=== PATIENT | male | born 1960 | race Caucasian/White ===

== ENCOUNTER 2020-08-15 01:01 | Observation (INO) | payer OTHER ==
[~2020-08-15] VITALS: Ht 188 cm; Wt 102.1 kg
--- NOTE | 2020-08-15 01:07 | Emergency Department Note ---
History of Present Illnes History of Present Illness History of Present Illness This is a 60 year old male woke up one hour prior to arrival with dyspnea and nausea. Recent prostatectomy in March 2020 secondary to CA . 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 Any updates have been documented here. Past Medical History Recent Fever: No Clinical Suspicion of Infectio: No New/Unexplained Change in Ment: No Past Medical History: None Other Surgery: prostatectomy Social History Smoking Cessation: Never Smoker Alcohol Use: None Any Illegal Drug Use: No Review of Systems Review of Systems Constitutional: Reports weakness EENTM: Reports no symptoms Cardiovascular: Reports no symptoms Respiratory: Reports dyspnea Gastrointestinal: Reports no symptoms Genitourinary: Reports no symptoms Musculoskeletal: Reports no symptoms Integumentary: Reports no symptoms Neurological: Reports no symptoms Psychological: Reports no symptoms Endocrine: Reports no symptoms Hematological/Lymphatic: Reports no symptoms Physical Exam Related Data Allergies: Coded Allergies: No Known Allergies (Unverified , 08/15/20) Triage Vital Signs Vital Signs Date Time Temp Pulse Resp B/P (MAP) Pulse Ox O2 Delivery O2 Flow Rate FiO2 08/15/20 01:25 98.7 59 23 164/101 100 Room Air Vital signs reviewed: Yes Physical Exam CONSTITUTIONAL Constitutional: Present well-developed, Present obese HENT HENT: Present normocephalic, Present atraumatic, Present oropharynx clear/moist, Present nose normal HENT L/R: Present left ext ear normal, Present right ext ear normal EYES Eyes: Reports PERRL, Reports conjunctivae normal NECK Neck: Present ROM normal PULMONARY Pulmonary: Present effort normal, Present breath sounds normal CARDIOVASCULAR Cardiovascular: Present bradycardia GASTROINTESTINAL Abdominal: Present soft, Present nontender, Present bowel sounds normal GENITOURINARY Genitourinary: Present exam deferred SKIN Skin: Present warm, Present dry MUSCULOSKELETAL Musculoskeletal: Present ROM normal NEUROLOGICAL Neurological: Present alert, Present oriented x 3, Present no gross motor or se nsory deficits PSYCHOLOGICAL Psychological: Present mood/affect normal, Present judgement normal Results Laboratory Lab results reviewed: Yes Laboratory comments Laboratory Tests Test 08/15/20 02:51 08/15/20 01:30 08/15/20 01:05 Urine Opiates Screen Negative (NEGATIVE) Urine Methadone Screen Negative (NEGATIVE) Urine Barbiturates Screen Negative (NEGATIVE) Urine Phencyclidine Screen Negative (NEGATIVE) Urine Amphetamines Screen Negative (NEGATIVE) Urine Methamphetamines Screen Negative (NEGATIVE) Urine Benzodiazepines Screen Negative (NEGATIVE) Urine Cocaine Screen Negative (NEGATIVE) Urine Cannabinoids Screen Negative (NEGATIVE) Coronavirus (PCR) Not detected (NOTDETECTED) White Blood Count 10.92 x10e3/uL (4.8-10.8) Red Blood Count 5.52 x10e6/uL (4.3-5.7) Hemoglobin 15.9 g/dL (14.0-18.0) Hematocrit 48.0 % (38.2-49.6) Mean Corpuscular Volume 87.0 fL (81-99) Mean Corpuscular Hemoglobin 28.8 pg (28-32) Mean Corpuscular Hemoglobin Concent 33.1 g/dL (31-35) Red Cell Distribution Width 13.3 % (11.7-14.4) Platelet Count 245 x10e3/uL (140-360) Neutrophils (%) (Auto) 56.5 % (38.7-80.0) Lymphocytes (%) (Auto) 36.2 % (18.0-39.1) Monocytes (%) (Auto) 4.2 % (4.4-11.3) Eosinophils (%) (Auto) 2.0 % (0.0-6.0) Basophils (%) (Auto) 0.3 % (0.0-1.0) Neutrophils # (Auto) 6.2 (2.1-6.9) Lymphocytes # (Auto) 4.0 (1.0-3.2) Monocytes # (Auto) 0.5 (0.2-0.8) Eosinophils # (Auto) 0.2 (0.0-0.4) Basophils # (Auto) 0.0 (0.0-0.1) Absolute Immature Granulocyte (auto 0.09 x10e3/uL (0-0.1) Sodium Level 146 mmol/L (136-145) Potassium Level 4.0 mmol/L (3.5-5.1) Chloride Level 106 mmol/L (98-107) Carbon Dioxide Level 25 mmol/L (22-29) Anion Gap 19.0 mmol/L (8-16) Blood Urea Nitrogen 18 mg/dL (7-26) Creatinine 1.43 mg/dL (0.72-1.25) Estimat Glomerular Filtration Rate 50 ML/MIN (60-) BUN/Creatinine Ratio 13 (6-25) Glucose Level 126 mg/dL (74-118) Calcium Level 10.0 mg/dL (8.4-10.2) Total Bilirubin 1.0 mg/dL (0.2-1.2) Aspartate Amino Transf (AST/SGOT) 19 IU/L (5-34) Alanine Aminotransferase (ALT/SGPT) 30 IU/L (0-55) Alkaline Phosphatase 89 IU/L (40-150) Creatine Kinase 86 IU/L (30-200) Creatine Kinase MB 3.40 ng/mL (0-5.0) Troponin I 0.008 ng/mL (0-0.300) B-Type Natriuretic Peptide 43.4 pg/mL (0-100) Total Protein 6.6 g/dL (6.5-8.1) Albumin 4.6 g/dL (3.5-5.0) Globulin 2.0 g/dL (2.3-3.5) Albumin/Globulin Ratio 2.3 (0.8-2.0) Imaging Imaging results reviewed: Yes Impressions [place] [address] Patient Name: BRYANT UREÑA MR #: [id number] : 1960 Age/Sex: 60/M Req #: [id number] Adm Physician: Ordered by: JONAH CRANDALL DO Report #: [id number] Location: ER Room/Bed: Procedure: [id number] CT/CT CHEST W Exam Date: 08/15/20 Exam Time: 199 REPORT STATUS: Signed EXAM: CT Chest WITH contrast (PE Protocol) INDICATION: ^PE PROTOCOL ^[id number] ^0 ^Y COMPARISON: None TECHNIQUE: Chest was scanned utilizing a multidetector helical scanner from the lung apex through the level of the diaphragm after administration of IV contrast. Thin section reconstructions were obtained with special concentration on the pulmonary arteries. Coronal and sagittal reformations were obtained. Dose modulation, iterative reconstruction, and/or weight based adjustment of the mA/kV was utilized to reduce the radiation dose to as low as reasonably achievable. Pulmonary embolism protocol was performed. IV CONTRAST: 100 mL of Omnipaque 370 COMPLICATIONS: None RADIATION DOSE: Total DLP: 695.81 mGy*cm Estimated effective dose: (DLP x 0.014 x size factor) mSv CTDIvol has been reviewed. It is below the limits set by the Radiation Protocol Committee (RPC). FINDINGS: LINES/ TUBES: None. LUNGS AND AIRWAYS: No filling defect is identified within the pulmonary arteries to the segmental level. The lungs are unremarkable. Airways are normal. PLEURA: The pleural spaces are clear. HEART AND MEDIASTINUM: The thyroid gland is normal. No mediastinal, hilar or axillary lymphadenopathy. The heart is normal in size.. There is no pericardial effusion. . Main pulmonary artery measures 3.3 cm, suggestive of pulmonary hypertension. UPPER ABDOMEN: 1.7 cm right hepatic lobe hypodensity cannot be fully characterized, but is probably a cyst. BONES: Left T4 transverse process sclerotic focus, likely a bone island. SOFT TISSUES: Right posterolateral shoulder subcutaneous lipoma. IMPRESSION: No pulmonary emboli. Signed by: Dr. Fito López MD on 08/15/2020 2:40 AM Dictated By: FITO LÓPEZ MD 9 Transcribed By: TERI on 08/15/20239 COPY TO: JONAH CRANDALL DO~ Procedures 12 Lead ECG Interpretation ECG Interpretation #1: ECG: ECG 1 Factory Expert: Interpreted by ED physician Date: Aug 15, 2020 Time: 01:13 Prior ECG tracings: reviewed Rhythm: sinus rhythm Rate: normal BPM: 69 QRS axis: normal ST segments normal: Yes T waves normal: No T waves flattening: all, V2 Other findings: LVH Q waves: aVR Clinical Impression: non-specific ECG ECG Interpretation #2: ECG: ECG 2 Factory Expert: Interpreted by ED physician Date: Aug 15, 2020 Time: 04:50 Prior ECG tracings: reviewed Rhythm: sinus rhythm Rate: bradycardia BPM: 55 QRS axis: normal ST segments normal: Yes T waves normal: No T waves flattening: I, II, III, V1-V6 Clinical Impression: non-specific ECG Clinical Decision Tools HEART Score Date Taken: Aug 15, 2020 Time taken: 03:00 List risk factors obesity ,HTN HEART Score: HEART Score Response (Comments) Value History Moderately suspicious 1 EKG Normal 0 Age 45 - 65 1 Risk factors 1 or 2 risk factors 1 Troponin < or = to normal limit Total 3 Assessment & Plan Medical Decision Making MDM 60 yom with dyspnea /. Cardiac enzymes, EKG, and CXR/CT scan of chest wall ordered to evaluate for ACS, PNA, PTX, CHF, PE and aortic pathology Assessment & Plan Final Impression: (1) Angina at rest Depart Disposition: ADMITTED JONAH CRANDALL DO Aug 15, 2020 01:07
[2020-08-15] MEDS ORDERED: SODIUM CHLORIDE 0.9% 1000ML 1,000 ML IV SCH ×2 (01:15→03:30)
[2020-08-15] MEDS ORDERED: LORAZEPAM INJ 2 MG/ML VIAL IV ONE (01:15)
[2020-08-15] MEDS ORDERED: ASPIRIN 81 MG CHEW TAB PO ONE ×2 (01:15→05:30)
[2020-08-15 01:16] LABS: BASOPHILS % 0.3 % (0.0-1.0); EOSINOPHILS # (AUTO) 0.2 (0.0-0.4); HEMOGLOBIN 15.9 g/dL (14.0-18.0); LYMPHOCYTES % 36.2 % (18.0-39.1); MEAN CORPUSCULAR HEMOGLOBIN 28.8 pg (28-32); MEAN CORPUSCULAR HGB CONC 33.1 g/dL (31-35); MONOCYTES # (AUTO) 0.5 (0.2-0.8); MONOCYTES % 4.2 % (4.4-11.3); NEUTROPHILS # (AUTO) 6.2 (2.1-6.9); NEUTROPHILS % 56.5 % (38.7-80.0); PLATELET COUNT 245 x10e3/uL (140-360); RED BLOOD COUNT 5.52 x10e6/uL (4.3-5.7); RED CELL DISTRIBUTION WIDTH 13.3 % (11.7-14.4)
[2020-08-15] MEDS ORDERED: SODIUM CHLORIDE 0.9% 1000ML 1,000 ML ONE (01:25)
[2020-08-15] MEDS ORDERED: LORAZEPAM INJ 2 MG/ML VIAL ONE (01:25)
[2020-08-15 01:34] LABS: ALBUMIN 4.6 g/dL (3.5-5.0); ALBUMIN/GLOBULIN RATIO 2.3 (0.8-2.0); CREATININE, SERUM 1.43 mg/dL (0.72-1.25)
--- NOTE | 2020-08-15 01:40 | NUR ---
patient reorientated to try to stay still when bp machine going, patient unable to sit still, dr myrick notified
[2020-08-15 01:41] LABS: CREATINE KINASE MB 3.4 ng/mL (0-5.0)
[2020-08-15] MEDS ORDERED: SODIUM CHLORIDE 0.9% 1000ML 1,000 ML IV ONE (01:45)
--- NOTE | 2020-08-15 02:21 | NUR ---
patient verbalizes feeling better, yo leg shaking has stopped
--- NOTE | 2020-08-15 02:31 | Diagnostic Imaging Report ---
EXAMINATION: CHEST SINGLE (PORTABLE) INDICATION: ^ERMD ORDER ^[id number] ^0140 ^Y COMPARISON: None FINDINGS: AP view TUBES and LINES: None. LUNGS: Lungs are well inflated. There is no evidence of pneumonia or pulmonary edema. Mild central vascular congestion. PLEURA: No pleural effusion or pneumothorax. HEART AND MEDIASTINUM: The cardiomediastinal silhouette is mildly enlarged. BONES AND SOFT TISSUES: No acute osseous lesion. Cervical fusion hardware is visualized. Soft tissues are unremarkable. UPPER ABDOMEN: No free air under the diaphragm. IMPRESSION: Mildly enlarged cardiomediastinal silhouette and central vascular congestion. No definite focal consolidations. Signed by: Dr. Fito López MD on 08/15/2020 2:28 AM
[2020-08-15] MEDS ORDERED: FAMOTIDINE 20 MG/2 ML VIAL IV STA (02:36)
--- NOTE | 2020-08-15 02:36 | Diagnostic Imaging Report ---
History:Dizziness, fall Comparison studies: None Technique: Axial images were obtained from the skull base to the vertex. Coronal and sagittal images reconstructed from the axial data. Dose modulation, iterative reconstruction, and/or weight based adjustment of the mA/kV was utilized to reduce the radiation dose to as low as reasonably achievable. Intravenous contrast: None Findings: Scalp/skull: No abnormalities. Extra-axial spaces: No masses. No fluid collections. Brain sulci: Mildly prominent. Ventricles: Mild compensatory dilatation. No hydrocephalus. Parenchyma: No abnormal densities No masses, hemorrhage, acute or chronic cortical vascular insults. Sellar/suprasellar region: No abnormalities. Craniocervical junction: Patent foramen magnum. No Chiari one malformation. 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 Signed by: Dr. Domingo Truong M.D. on 08/15/2020 2:33 AM
--- NOTE | 2020-08-15 02:43 | Diagnostic Imaging Report ---
EXAM: CT Chest WITH contrast (PE Protocol) INDICATION: ^PE PROTOCOL ^[id number] ^0200 ^Y COMPARISON: None TECHNIQUE: Chest was scanned utilizing a multidetector helical scanner from the lung apex through the level of the diaphragm after administration of IV contrast. Thin section reconstructions were obtained with special concentration on the pulmonary arteries. Coronal and sagittal reformations were obtained. Dose modulation, iterative reconstruction, and/or weight based adjustment of the mA/kV was utilized to reduce the radiation dose to as low as reasonably achievable. Pulmonary embolism protocol was performed. IV CONTRAST: 100 mL of Omnipaque 370 COMPLICATIONS: None RADIATION DOSE: Total DLP: 695.81 mGy*cm Estimated effective dose: (DLP x 0.014 x size factor) mSv CTDIvol has been reviewed. It is below the limits set by the Radiation Protocol Committee (RPC). FINDINGS: LINES/ TUBES: None. LUNGS AND AIRWAYS: No filling defect is identified within the pulmonary arteries to the segmental level. The lungs are unremarkable. Airways are normal. PLEURA: The pleural spaces are clear. HEART AND MEDIASTINUM: The thyroid gland is normal. No mediastinal, hilar or axillary lymphadenopathy. The heart is normal in size.. There is no pericardial effusion. . Main pulmonary artery measures 3.3 cm, suggestive of pulmonary hypertension. UPPER ABDOMEN: 1.7 cm right hepatic lobe hypodensity cannot be fully characterized, but is probably a cyst. BONES: Left T4 transverse process sclerotic focus, likely a bone island. SOFT TISSUES: Right posterolateral shoulder subcutaneous lipoma. IMPRESSION: No pulmonary emboli. Signed by: Dr. Fito López MD on 08/15/2020 2:40 AM
[2020-08-15 03:00] LABS: AMPHETAMINES SCREEN,URINE NEGATIVE (NEGATIVE); BENZODIAZEPINES SCREEN,URINE NEGATIVE (NEGATIVE); PHENCYCLIDINE SCREEN,URINE NEGATIVE (NEGATIVE)
[2020-08-15 05:07] LABS: CREATINE KINASE MB 3.4 ng/mL (0-5.0)
[2020-08-15] MEDS ORDERED: ONDANSETRON HCL INJ 2MG/ML 2ML 2 MG/ML VIAL IV PRN (05:30)
[2020-08-15] MEDS ORDERED: MORPHINE SULFATE INJ 4 MG/ML INJ 1ML IV PRN (05:30)
--- NOTE | 2020-08-15 06:47 | NUR ---
walking rounds with jaycee jarvis
[2020-08-15] MEDS ORDERED: SODIUM CHLORIDE 0.9% 50ML 50 ML ONE (07:06)
[2020-08-15] MEDS ORDERED: IOPAMIDOL 370 MG/ML 200 ML INFUS..BTL INJ ONE (07:06)
--- NOTE | 2020-08-15 12:49 | History and Physical ---
CHIEF COMPLAINT: Atypical chest pain, epigastric after eating papaya. HISTORY OF PRESENT ILLNESS: The patient is a 60-year-old male with no cardiac history. The patient has chronic bradycardia. He is from [place], traveled here. Apparently, he felt some chest discomfort, nausea after he was eating some papaya. The patient is now chest pain-free. The patient had CT brain unremarkable. CT chest showed no pulmonary emboli, otherwise unremarkable. Lab work otherwise unremarkable. Cardiac enzyme has been negative x2 sets, 0.008 and 0.09. 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 PAST MEDICAL HISTORY: Noncontributory. PAST SURGICAL HISTORY: Prostate surgery and neck surgery. SOCIAL HISTORY: The patient does not smoke or use alcohol. No regular drug. ALLERGIES: TO NO KNOWN ALLERGIES. HOME MEDICATIONS: None. PHYSICAL EXAMINATION: VITAL SIGNS: Temperature is 98, blood pressure 131/72, pulse rate 51, and respirations 18. GENERAL: The patient is not in acute distress. He is awake. HEENT: Normocephalic and atraumatic. He is anicteric. NECK: Supple grossly. PULMONARY: Clear. CARDIOVASCULAR: Sinus bradycardia. ABDOMEN: Soft and unremarkable. EXTREMITIES: No cyanosis or edema. NEUROLOGIC: No focal deficit. LABORATORY DATA: Sodium is 146, potassium 4, chloride 106, bicarb 25, BUN is 18, creatinine 1.4, and glucose is 126. WBC is 10.9, hemoglobin 15.9, hematocrit 48, and platelets is 245. IMAGING TESTS: Brain CT, chest x-ray, and chest CT otherwise unremarkable. IMPRESSION: Atypical chest pain, could be upper GI problem, could be food induced or possible both secondary to coronary artery disease. The patient's cardiac enzyme has been negative. Echocardiogram showed ejection fraction of 60%. The patient is otherwise stable. He wanted to go home and see his manager animation, for which he does have an appointment. At this time, the patient is asymptomatic. I will send the patient home per his request and strongly recommended the patient to follow up closely. MD ANASTACIA Da Silva/HECTOR /[id number]
--- NOTE | 2020-08-15 15:52 | Discharge Summary ---
Please review my brief history and physical. The patient is otherwise, stable. was negative. No chest pain. No abdominal pain. 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 The patient is otherwise, asymptomatic at this time. MD ANASTACIA Da Silva/HECTOR /[id number]
--- OUTSIDE RECORDS SUMMARY | 2020-08-18 15:51 | XMS REPORT | Continuity of Care Document ---
Author Author [facility] Organization [facility] Address Count includes the [facility] 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 Social History Social Habit Start Date Stop Date Quantity Comments Source Sex Assigned At 1960 00:00:00 1960 00:00:00 Male [facility] Medications This patient has no known medications. Vital Signs Vital Name Observation Time Observation Value Comments Source Weight 2020-08-15 01:25:00 225 [lb_av] [facility] BMI (Body Mass Index) 2020-08-15 01:25:00 28.9 kg/m2 [facility] Procedures Procedure Date / Time Performed Performing Clinician Sour e Computed tomography of chest with contrast 2020-08-15 00:00:00 [facility] Computed tomography of brain without radiopaque contrast 2020-07 00:00:00 [facility] Plan of Care Planned Activity Planned Date Details Comments Source Instructions Angina [facility] Encounters Start Date/Time End Date/Time Encounter Type Admission Type Attendi [facility] [place] Facility Care Department Encounter ID Source 2020-08-15 05:20:00 2020-08-15 10:09:00 Discharged Inpatient (obs) 1 JONAH CRANDALL [facility] [id number] I [facility] Results Test Description Test Time Test Comments Results Result Comments Source Serum or plasma creatine kinase measurement (enzymatic activity/volume) 2020-08-15 04:40:00 Test Item Creatine Kinase (test code = 2157-6) 76 30-200 [facility] creatine kinase MB measurement (mass/volume)2020-08-15 04:40:00* Test Item Value Reference Range Interpretation Comments Creatine Kinase MB (test code = 59596-8) 3.40 0-5.0 [facility]Trop[facility] I measurement by highly sensitive enzyme fkldkemdqak4123-02-88 04:40:00* Test Item Value Reference Range Interpretation Comments Troponin I (test code = 12991-0) 0.091 0-0.300 [facility] opiates screening [id number] 02:51:00* Test Item Value Reference Range Interpretation Comments Urine Opiates Screen (test code = 08525-5) NEGATIVE NEGATIVE ALL TESTS PERFORMED MANUALLY ON [employer] TOX/SEE TESTJohn Peter Smith HospitalBarbiturates screen, [id number] 02:51:00* Test Item Value Reference Range Interpretation Comments Urine Barbiturates Screen (test code = 992581037) NEGATIVE NEGA TIVE [facility] HospitalUrine phencyclidine detection by screening [id number] 02:51:00* Test Item Value Reference Range Interpretation Comments Urine Phencyclidine Screen (test code = 03594-5) NEGATIVE NEGAT BARB [facility] HospitalUrine amphetamines detection by screen method > 1000 ng/pV6661-01-58 02:51:00* Test Item Value Reference Range Interpretation Comments Urine Amphetamines Screen (test code = 20498-8) NEGATIVE NEGATI VE [facility] HospitalFluoroscopic procedure less than one hour pawcgsei9542-19-80 02:51:00* Test Item Value Reference Range Interpretation Comments Urine Methamphetamines Screen (test code = Urine Metha mphetamines Screen) NEGATIVE NEGATIVE [facility] HospitalUrine benzodiazepines detection by screening [id number] 02:51:00* Test Item Value Reference Range Interpretation Comments Urine Benzodiazepines Screen (test code = 20865-4) NEGATIVE NEG ATIVE [facility] HospitalUrine cocaine measurement (mass/volume) 2020-08-15 02:51:00* Test Item Value Reference Range Interpretation Comments Urine Cocaine Screen (test code = 3398-5) NEGATIVE NEGATIVE [facility] HospitalUrine cannabinoids detection by screening [id number] 02:51:00* Test Item Value Reference Range Interpretation Comments Urine Cannabinoids Screen (test code = 22040-9) NEGATIVE NEGATI VE THESE RESULTS ARE FOR MEDICAL TREATMENT ONLYTHIS REPORT CONTAINS UNCONFIR MED SCREENING RESULTS*POSITIVE RESULTS WILL BE CONFIRMED BY REFERENCE LAB UPON R EQUEST CUT-OFFDRUG CLASS CONCENTRATION ng/mLAmphetamines 1000Methamphetamines 1000Cocaine 300Opiate 300Phencyc lidine 25Cannabinoid 50Barbiturates 300Benzodiazepine 300Methadone 300[facility] HospitalUrine methadone [id number] 02:51:00* Test Item Value Reference Range Interpretation Comments Urine Methadone Screen (test code = 09980-4) NEGATIVE NEGATIVE THESE RESULTS ARE FOR MEDICAL TREATMENT ONLYTHIS REPORT CONTAINS UNCONFIR MED SCREENING RESULTS*POSITIVE RESULTS WILL BE CONFIRMED BY REFERENCE LAB UPON R EQUEST CUT-OFFDRUG CLASS CONCENTRATION ng/mLAmphetamines 1000Methamphetamines 1000Cocaine Metabolite 300Opiate 300Phencyc lidine 25Cannabinoid 50Barbiturates 300Benzodiazepine 300Methadone 300[facility] HospitalCT BRAIN [id number] 02:31:00 [facility] [address] [place] [address] Patient Name: BRYANT UREÑA MR #: [id number] : 1960 Age/Sex: 60/M Req #: [id number] [facility] Physician: Ordered by: JONAH CRANDALL DO Report #: [id number] Location: ER Room/Bed: Procedure: [id number] CT/CT BRAIN W O Exam Date: 08/15/20 Exam Time: 0200 REPORT STATUS: Signed History:Dizziness, fall Comparison studies: None Technique: Axial images were obtained fro m the skull base to the vertex. Coronal and sagittal images reconstructed from the axial data. Dose modulation, iterative reconstruction, and/or weight base d adjustment of the mA/kV was utilized to reduce the radiation dose to as low as reasonably achievable. Intravenous contrast: None Findings: Scalp/skull: No abnormalities. Extra-axial spaces: No masses. No f luid collections. Brain sulci: Mildly prominent. Ventricles: Mild compens atory dilatation. No hydrocephalus. Parenchyma: No abnormal densities No masses, hemorrhage, acute or chronic cortical vascular insults. Sellar/s uprasellar region: No abnormalities. Craniocervical junction: Patent foramen m agnum. No Chiari one malformation. 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 Signed by: Dr. Domingo Truong M.D. on 08/15/2020 2:33 AM Dic tated By: DOMINGO TRUONG MD, MD 2 Transcribed By: TERI on 08/15/20232 COPY TO: JONAH CRANDALL DO CT CHEST [id number] 02:28:00 [place] [address] Patient Name: BRYANT UREÑA MR #: [id number] : 1960 Age/Sex: 60/M Req #: [id number] Adm Physician: Ordered by: JONAH CRANDALL DO Report #: [id number] Location: Room/Bed: Procedure: [id number] CT/CT CHEST W Exam Date: 08/15/20 Exam Time: 199 REPORT STATUS: Signed EXAM: CT Chest WITH contr ast (PE Protocol) INDICATION: PE PROTOCOL [id number] Y COMPARISON: None TECHNIQUE: Chest was scanned utilizing a multidetector helical scanner from the lung apex through the level of the diaphragm after a dministration of IV contrast. Thin section reconstructions were obtained with special concentration on the pulmonary arteries. Coronal and sagittal reformat ions were obtained. Dose modulation, iterative reconstruction, and/or weight b ased adjustment of the mA/kV was utilized to reduce the radiation dose to as l ow as reasonably achievable. Pulmonary embolism protocol was performed. IV CONTRAST: 100 mL of Omnipaque 370 COMPLICATIONS: None RADIATION DO SE: Total DLP: 695.81 mGy*cm Estimated effective dose: (DLP x 0.0 14 x size factor) mSv CTDIvol has been reviewed. It is below the limits s et by the Radiation Protocol Committee (RPC). FINDINGS: LINES/ TUBES : None. LUNGS AND AIRWAYS: No filling defect is identified within the pulmo nary arteries to the segmental level. The lungs are unremarkable. Airways ar e normal. PLEURA: The pleural spaces are clear. HEART AND MEDIASTINU M: The thyroid gland is normal. No mediastinal, hilar or axillary lymphadenop athy. The heart is normal in size.. There is no pericardial effusion. . Main pulmonary artery measures 3.3 cm, suggestive of pulmonary hypertension. UPPER ABDOMEN: 1.7 cm right hepatic lobe hypodensity cannot be fully lolita cterized, but is probably a cyst. BONES: Left T4 transverse process sclerot ic focus, likely a bone island. SOFT TISSUES: Right posterolateral shoulder subcutaneous lipoma. IMPRESSION: No pulmonary emboli. Signed by: Yoshi Oliver MD on 08/15/2020 2:40 AM Dictated By: FITO OLIVER MD 9 Transcribed By: TERESA CRANDALL on 08/15/20239 COPY TO: JONAH CRADNALL DO CHEST SINGLE (PORTABLE)2020-08-15 02:23:00 [facility] [address] [place], [place] [address] Patient Name: BRYANT UREÑA MR #: [id number] : 1960 Age/Sex: 60/M Req #: [id number] Adm Physician: Ordered by: JONAH CRANDALL DO Report #: [id number] Location: ER Room/Bed: Procedure: DX/CHEST SING LE (PORTABLE) Exam Date: 08/15/20 Exam Time: 139 REPORT STATUS: Signed EXAMINATION: CHEST SINGLE (PORTABLE) INDICATION: ERMD ORDER [id number] 0140 Y COMPARISON: None FINDINGS: AP view TUBES an d LINES: None. LUNGS: Lungs are well inflated. There is no evidence of p neumonia or pulmonary edema. Mild central vascular congestion. PLEURA: N o pleural effusion or pneumothorax. HEART AND MEDIASTINUM: The cardiomedia stinal silhouette is mildly enlarged. BONES AND SOFT TISSUES: No acu te osseous lesion. Cervical fusion hardware is visualized. Soft tissues are un remarkable. UPPER ABDOMEN: No free air under the diaphragm. IMPRES SAULO: Mildly enlarged cardiomediastinal silhouette and central vascular conge stion. No definite focal consolidations. Signed by: Dr. Fito Oliver MD on 08/15/2020 2:28 AM Dictated By: FITO OLIVER MD Electronically Si gned By: FITO OLIVER MD on 08/15/20227 Transcribed By: TERI on 08/15/20227 COPY TO: JONAH CRANDALL DO Fluoroscopic procedure less than one hour [id number] 01:30:00* Test Item Value Reference Range Interpretation Comments Coronavirus (PCR) (test code = Coronavirus (PCR)) NOT DETECTED NOTD ETECTED SARS-COV2/RT-PCR CEPHEIDResults are for the detection of SARS-COV-2 RNA. The PRACHI S-COV-2 RNA is generally detectable in nasopharyngeal swab specimens during the acute phase of infection. Positive results are indicitive of active infection wi SARS-COV-2; clinical correlation with patient history and other diagnostic in formation is necessary to determine patient infection status. Positive results d o not rule out bacterial infection or co-infection with other viruses. The agent detected may not be the definite cause of the disease.The limit of detection fo r this assay is 250 copies/mLThe SARS-CoV-2 test is a rapid, real-time RT-PCR te st intended for the qualitative detection of nucleic acid from SARS-CoV-2 in david opharyngeal swab specimen collected from individuals suspected of COVID-19 by [facility] provider. This test has not been Food and Drug Administration (FD A) cleared or approved and has been authorized by FDA under an Emergency Use Aut horization (EUA). This EUA will be effective until the declaration that circumst ances exist justifying the authorization of the emergency use of in vitro diagno stic test for detection and or diagnosis of COVID-19 is terminated under section 564(b) of the Act, or the the EUA is revoked under 564(g) of the ACT.[facility] HospitalBlunited hospital leukocytes automated count (number/volume) 2020-08-15 01:05:00* Test Item Value Reference Range Interpretation Comments White Blood Count (test code = 6690-2) 10.92 4.8-10.8 [facility] HospitalBlood erythrocytes automated count (number/volume)2020-08-15 01:05:00* Test Item Value Reference Range Interpretation Comments Red Blood Count (test code = 789-8) 5.52 4.3-5.7 [facility] HospitalBlood hemoglobin measurement (moles/volume)2020-08-15 01:05:00* Test Item Value Reference Range Interpretation Comments Hemoglobin (test code = 71989-6) 15.9 14.0-18.0 [facility] HospitalAutomated blood hematocrit (volume fraction)2020-08-15 01:05:00* Test Item Value Reference Range Interpretation Comments Hematocrit (test code = 4544-3) 48.0 38.2-49.6 [facility] HospitalAutomated erythrocyte mean corpuscular iwwuaq0730-14-60 01:05:00* Test Item Value Reference Range Interpretation Comments Mean Corpuscular Volume (test code = 787-2) 87.0 81-99 [facility] HospitalAutomated erythrocyte mean corpuscular hemoglobin (mass per erythrocyte)2020-08-15 01:05:00* Test Item Value Reference Range Interpretation Comments Mean Corpuscular Hemoglobin (test code = 785-6) 28.8 28-32 [facility] HospitalAutomated erythrocyte mean corpuscular hemoglobin concentration measurement (mass/volume)2020-08-15 01:05:00* Test Item Value Reference Range Interpretation Comments Mean Corpuscular Hemoglobin Concent (test code = 786-4) 33.1 31-35 [facility] HospitalRDW YprXe-Gwu4790-41-24 01:05:00* Test Item Value Reference Range Interpretation Comments Red Cell Distribution Width (test code = 47580-3) 13.3 11.7 -14.4 [facility] HospitalAutomated blood platelet count (count/volume)2020-08-15 01:05:00* Test Item Value Reference Range Interpretation Comments Platelet Count (test code = 777-3) 245 140-360 [facility] HospitalAutcrawley memorial hospitaled blood segmented neutrophil count as percentage of total xrkdrlrfdl5922-64-65 01:05:00* Test Item Value Reference Range Interpretation Comments Neutrophils (%) (Auto) (test code = 81326-9) 56.5 38.7-80.0 [facility] HospitalAutomated blood lymphocyte count as percentage ot total fznrqsaemv9943-45-48 01:05:00* Test Item Value Reference Range Interpretation Comments Lymphocytes (%) (Auto) (test code = 736-9) 36.2 18.0-39.1 [facility] HospitalAutomated blood monocyte count as percentage of total vxkgqkqsko2491-29-79 01:05:00* Test Item Value Reference Range Interpretation Comments Monocytes (%) (Auto) (test code = 5905-5) 4.2 4.4-11.3 [facility] HospitalAutomated blood eosinophil count as percentage of total qnbsappigv8983-03-70 01:05:00* Test Item Value Reference Range Interpretation Comments Eosinophils (%) (Auto) (test code = 713-8) 2.0 0.0-6.0 [facility] HospitalAutomated blood basophil count as percentage of total simjcmppkx7146-07-93 01:05:00* Test Item Value Reference Range Interpretation Comments Basophils (%) (Auto) (test code = 706-2) 0.3 0.0-1.0 [facility] HospitalFluoroscopic procedure less than one hour gpkxkyek5581-12-72 01:05:00* Test Item Value Reference Range Interpretation Comments IM GRANULOCYTES % (test code = IM GRANULOCYTES %) 0.8 0.0- 1.0 [facility] HospitalAutomated blood neutrophil count 2020-08-15 01:05:00* Test Item Value Reference Range Interpretation Comments Neutrophils # (Auto) (test code = 751-8) 6.2 2.1-6.9 [facility] HospitalBlood lymphocytes count (number/volume) 2020-08-15 01:05:00* Test Item Value Reference Range Interpretation Comments Lymphocytes # (Auto) (test code = 91298-6) 4.0 1.0-3.2 [facility] HospitalBlood monocytes automated count (number/volume)2020-08-15 01:05:00* Test Item Value Reference Range Interpretation Comments Monocytes # (Auto) (test code = 742-7) 0.5 0.2-0.8 [facility] HospitalAutomated blood eosinophil count 2020-08-15 01:05:00* Test Item Value Reference Range Interpretation Comments Eosinophils # (Auto) (test code = 711-2) 0.2 0.0-0.4 [facility] HospitalAutomated blood basophil count (count/volume)2020-08-15 01:05:00* Test Item Value Reference Range Interpretation Comments Basophils # (Auto) (test code = 704-7) 0.0 0.0-0.1 [facility] HospitalFluoroscopic procedure less than one hour oslsmmth4590-62-03 01:05:00* Test Item Value Reference Range Interpretation Comments Absolute Immature Granulocyte (auto (marky t code = Absolute Immature Granulocyte (auto) 0.09 0-0.1 [facility] plasma sodium measurement (moles/volume)2020-08-15 01:05:00* Test Item Value Reference Range Interpretation Comments Sodium Level (test code = 2951-2) 146 136-145 [facility] or plasma potassium measurement (moles/volume)2020-08-15 01:05:00* Test Item Value Reference Range Interpretation Comments Potassium Level (test code = 2823-3) 4.0 3.5-5.1 [facility] or plasma chloride measurement (moles/volume)2020-08-15 01:05:00* Test Item Value Reference Range Interpretation Comments Chloride Level (test code = 2075-0) 106 98-107 [facility] or plasma carbon dioxide, total measurement (moles/volume)2020-08-15 01:05:00* Test Item Value Reference Range Interpretation Comments Carbon Dioxide Level (test code = 2028-9) 25 22-29 [facility] or plasma anion qkn4488-77-27 01:05:00* Test Item Value Reference Range Interpretation Comments Anion Gap (test code = 35546-4) 19.0 8-16 [facility] or plasma urea nitrogen measurement (mass/volume)2020-08-15 01:05:00* Test Item Value Reference Range Interpretation Comments Blood Urea Nitrogen (test code = 3094-0) 18 7-26 [facility] or plasma creatinine measurement (mass/volume)2020-08-15 01:05:00* Test Item Value Reference Range Interpretation Comments Creatinine (test code = 2160-0) 1.43 0.72-1.25 [facility] or plasma urea nitrogen/creatinine mass oucxu5781-22-88 01:05:00* Test Item Value Reference Range Interpretation Comments BUN/Creatinine Ratio (test code = 3097-3) 13 6-25 [facility] HospitalEstimated glomerular filtration rate (GFR) ynzvjqxasvzuh0615-33-85 01:05:00* Test Item Value Reference Range Interpretation Comments Estimat Glomerular Filtration Rate (test code = 210912077) 50 >60 Ranges were taken from the National Kidney Disease Education Program and the [facility] Kidney Foundation literature.Reference ranges:60 or greater: Ggtgcn77-82 ( for 3 consecutive months): Chronic kidney disease 15 or less: Kidney failureJohn Peter Smith HospitalGlucose bavcnfpncbm5863-87-03 01:05:00* Test Item Value Reference Range Interpretation Comments Glucose Level (test code = QPI5496) 126 74-118 [facility] or plasma calcium measurement (mass/volume)2020-08-15 01:05:00* Test Item Value Reference Range Interpretation Comments Calcium Level (test code = 37181-6) 10.0 8.4-10.2 [facility] or plasma total bilirubin measurement (mass/volume)2020-08-15 01:05:00* Test Item Value Reference Range Interpretation Comments Total Bilirubin (test code = 1975-2) 1.0 0.2-1.2 [facility] HospitalFluoroscopic procedure less than one hour kzfafqlg7387-56-48 01:05:00* Test Item Value Reference Range Interpretation Comments Aspartate Amino Transf (AST/SGOT) (test code = Aspartate Amino Transf (AST/SGOT)) 19 5-34 [facility] or plasma alanine aminotransferase measurement (enzymatic activity/volume)2020-08-15 01:05:00* Test Item Value Reference Range Interpretation Comments Alanine Aminotransferase (ALT/SGPT) (test code = 1742-6) 30 0-55 [facility] or plasma protein measurement (mass/volume)2020-08-15 01:05:00* Test Item Value Reference Range Interpretation Comments Total Protein (test code = 2885-2) 6.6 6.5-8.1 [facility] or plasma albumin measurement (mass/volume)2020-08-15 01:05:00* Test Item Value Reference Range Interpretation Comments Albumin (test code = 1751-7) 4.6 3.5-5.0 [facility] HospitalPlasma globulin measurement (mass/volume) 2020-08-15 01:05:00* Test Item Value Reference Range Interpretation Comments Globulin (test code = 58813-2) 2.0 2.3-3.5 [facility] or plasma albumin/globulin mass xjqjo5905-61-57 01:05:00* Test Item Value Reference Range Interpretation Comments Albumin/Globulin Ratio (test code = 1759-0) 2.3 0.8-2.0 [facility] or plasma alkaline phosphatase measurement (enzymatic activity/volume)2020-08-15 01:05:00* Test Item Value Reference Range Interpretation Comments Alkaline Phosphatase (test code = 6768-6) 89 40-150 [facility] Ebt-vYwn7127-97-24 01:05:00* Test Item Value Reference Range Interpretation Comments B-Type Natriuretic Peptide (test code = 49373-5) 43.4 0-100 [facility]
== END 2020-08-15 10:09 | disposition home or self-care (01) ==
LOC: ER 01:11 → ERHOLD 05:20
PROVIDERS: ADMIT Internal Medicine; ATTEND Internal Medicine
DX: R07.89 Other chest pain (principal); Z11.59 Encounter for screening for other viral diseases
CPT/HCPCS: 36415; 70450; 71045; 71260; 80053; 80307; 82550; 82553; 83880; 84484; 85025; 93005; 93306; 99284; G0378; J2060; J7030; Q9967; U0002